=== PATIENT | male | born 1955 | race African-American/Black ===

== ENCOUNTER 2018-02-09 12:07 | Inpatient (IN) | payer MEDICARE ==
[~2018-02-09] VITALS: Ht 170.2 cm; Wt 90.0 kg
[2018-02-09 13:40] LABS: BASOPHILS % (AUTO) 0.9 % (0.0-2.0); EOSINOPHILS % (AUTO) 1.6 % (1.0-6.0); HEMATOCRIT 48.4 % (41-53); HEMOGLOBIN 16.2 g/dL (13.5-17.5); LYMPHOCYTES # (AUTO) 1.3 K/uL (1.0-4.8); LYMPHOCYTES % (AUTO) 18.6 % (22.0-44.0); MEAN CORPUSCULAR HEMOGLOBIN 30.1 pg (26.0-34.0); MEAN CORPUSCULAR HGB CONC 33.5 G/dL (31.0-37.0); MEAN CORPUSCULAR VOLUME 90 fL (80-100); MONOCYTES # (AUTO) 0.5 K/uL (0.1-1.0); MONOCYTES % (AUTO) 7.8 % (2.0-9.0); NEUTROPHILS % (AUTO) 71.1 % (40.0-70.0); PLATELET COUNT (AUTO) 179 K/uL (150-450); RED BLOOD CELL COUNT(AUTO) 5.37 MIL/uL (4.50-5.90); RED CELL DISTRIBUTION WIDTH 16.9 % (11.5-14.5)
[2018-02-09 13:55] LABS: ANION GAP 11 mmol/L (8-16); CALCIUM, TOTAL 9.5 mg/dL (8.8-10.5); CARBON DIOXIDE 23 mmol/L (22-29); CHLORIDE 105 mmol/L (98-107); CREATININE 1.37 mg/dL (0.60-1.30); GLOMERULAR FILTR. RATE CALC > 60 mL/min (>60); GLUCOSE,RANDOM 90 mg/dL (70-110); SODIUM SERUM 139 mmol/L (136-145); UREA NITROGEN, BLOOD 21 mg/dL (7-18)
[2018-02-09 14:00] LABS: ALANINE AMINOTRANSFERASE 19 U/L (12-78); ALBUMIN 2.8 g/dL (3.4-5.0); ALKALINE PHOSPHATASE 115 U/L (46-116); ASPARTATE AMINOTRANSFERASE 17 U/L (15-37); BILIRUBIN,TOTAL 0.4 mg/dL (0.1-1.0); TOTAL PROTEIN, SERUM 6.8 g/dL (6.4-8.2)
[2018-02-09] MEDS ORDERED: HALOPERIDOL 5 MG TABLET PO PRN (15:30)
[2018-02-09] MEDS ORDERED: ZOLPIDEM TARTRATE 10 MG TABLET PO PRN (15:30)
[2018-02-09] MEDS ORDERED: LORazepam 2 MG TABLET PO PRN (15:30)
[2018-02-09 18:10] VITALS: BP 146/85
[2018-02-09] MEDS ORDERED: PNEUMOCOCCAL VACCINE POLYVALENT 0.5 ML VIAL [PPSV23] IM ONE ×2 (18:15→21:30)
[2018-02-09] MEDS ORDERED: IBUPROFEN 400 MG TABLET PO PRN (18:30)
[2018-02-09] MEDS ORDERED: NICOTINE 14 MG/24 HOUR PATCH TD PRN (18:30)
[2018-02-09] MEDS ORDERED: ONDANSETRON HCL 4 MG TABLET PO PRN (18:30)
[2018-02-09] MEDS ORDERED: CloNIDine HCL 0.1 MG TABLET PO PRN (18:30)
[2018-02-09] MEDS ORDERED: ALBUTEROL SULFATE HFA 90 MCG/PUFF 8 GM INHALER IH PRN (18:30)
[2018-02-09] MEDS ORDERED: PETROLATUM,WHITE 71 GM JELLY TP PRN (18:30)
[2018-02-09] MEDS ORDERED: LOPERAMIDE HCL 2 MG CAPSULE PO PRN (18:30)
[2018-02-09] MEDS ORDERED: ACETAMINOPHEN 325 MG TABLET PO PRN (18:30)
[2018-02-09] MEDS ORDERED: MAG HYDROX/AL HYDROX/SIMETH ES 30 ML SUSPENSION UDCUP PO PRN (18:30)
[2018-02-09] MEDS ORDERED: GuaiFENesin/D-METHORPHAN [SUGAR-FREE] 200-20MG/10 ML SYRUP UDCUP PO PRN (18:30)
[2018-02-09] MEDS ORDERED: MAGNESIUM HYDROXIDE SUSPENSION 30 ML UDCUP PO PRN (18:30)
[2018-02-09] MEDS ORDERED: DOCUSATE SODIUM 100 MG CAPSULE PO PRN (18:30)
[2018-02-09] MEDS: AmLODIPine BESYLATE 5 MG TABLET PO SCH (20:45)
[2018-02-09] MEDS: NICOTINE 21 MG/24 HOUR PATCH TD SCH (20:46)
[2018-02-10 00:46] VITALS: BP 128/75
[2018-02-10 07:20] LABS: BASOPHILS % (AUTO) 0.8 % (0.0-2.0); EOSINOPHILS % (AUTO) 2.1 % (1.0-6.0); HEMATOCRIT 44.3 % (41-53); HEMOGLOBIN 14.9 g/dL (13.5-17.5); LYMPHOCYTES # (AUTO) 1.9 K/uL (1.0-4.8); LYMPHOCYTES % (AUTO) 26.3 % (22.0-44.0); MEAN CORPUSCULAR HEMOGLOBIN 30.2 pg (26.0-34.0); MEAN CORPUSCULAR HGB CONC 33.5 G/dL (31.0-37.0); MEAN CORPUSCULAR VOLUME 90 fL (80-100); MONOCYTES # (AUTO) 0.8 K/uL (0.1-1.0); MONOCYTES % (AUTO) 10.5 % (2.0-9.0); NEUTROPHILS # (AUTO) 4.5 K/uL (1.8-7.7); NEUTROPHILS % (AUTO) 60.3 % (40.0-70.0); PLATELET COUNT (AUTO) 174 K/uL (150-450); RED BLOOD CELL COUNT(AUTO) 4.92 MIL/uL (4.50-5.90); RED CELL DISTRIBUTION WIDTH 16.9 % (11.5-14.5)
[2018-02-10 07:36] LABS: HEMOGLOBIN A1C 5.5 % (4.5-6.2)
[2018-02-10 07:55] LABS: ALBUMIN 2.8 g/dL (3.4-5.0); BILIRUBIN,TOTAL 0.2 mg/dL (0.1-1.0); CALCIUM, TOTAL 8.9 mg/dL (8.8-10.5); CREATININE 1.51 mg/dL (0.60-1.30); POTASSIUM 4.2 mmol/L (3.5-5.1); THYROID STIMULATING HORMONE 0.69 uIU/mL (0.36-3.74); TOTAL PROTEIN, SERUM 5.9 g/dL (6.4-8.2)
[2018-02-10 08:05] VITALS: BP 126/95
[2018-02-10] MEDS: OLANZapine 5 MG TABLET PO SCH ×2 (12:26→16:25)
[2018-02-10] MEDS: AmLODIPine BESYLATE 5 MG TABLET PO SCH (12:28)
[2018-02-10] MEDS: NICOTINE 21 MG/24 HOUR PATCH TD SCH (14:04)
[2018-02-10 17:00] VITALS: BP 115/57
[2018-02-11 03:15] VITALS: BP 135/92
[2018-02-11 08:05] VITALS: BP 153/86
[2018-02-11] MEDS: OLANZapine 5 MG TABLET PO SCH ×2 (08:34→16:18)
[2018-02-11] MEDS: AmLODIPine BESYLATE 5 MG TABLET PO SCH (08:34)
[2018-02-11] MEDS: NICOTINE 21 MG/24 HOUR PATCH TD SCH (08:38)
[2018-02-11 21:48] VITALS: BP 134/69
[2018-02-12 07:00] VITALS: BP 157/96
[2018-02-12] MEDS: AmLODIPine BESYLATE 5 MG TABLET PO SCH (08:17)
[2018-02-12] MEDS: OLANZapine 5 MG TABLET PO SCH ×2 (08:17→16:18)
[2018-02-12] MEDS: NICOTINE 21 MG/24 HOUR PATCH TD SCH (08:17)
[2018-02-12 10:06] VITALS: BP 149/85
[2018-02-12 16:00] VITALS: BP 145/82
[2018-02-13] MEDS: OLANZapine 5 MG TABLET PO SCH ×2 (08:40→16:37)
[2018-02-13] MEDS: AmLODIPine BESYLATE 5 MG TABLET PO SCH (08:40)
[2018-02-13] MEDS: NICOTINE 21 MG/24 HOUR PATCH TD SCH (08:45)
[2018-02-13 10:09] VITALS: BP 143/83
[2018-02-13 17:09] VITALS: BP 128/78
[2018-02-14 02:10] VITALS: BP 125/84
[2018-02-14 08:05] VITALS: BP 150/87
[2018-02-14] MEDS: OLANZapine 5 MG TABLET PO SCH ×2 (08:40→16:11)
[2018-02-14] MEDS: AmLODIPine BESYLATE 5 MG TABLET PO SCH (08:40)
[2018-02-14] MEDS: NICOTINE 21 MG/24 HOUR PATCH TD SCH (08:45)
[2018-02-14 16:30] VITALS: BP 137/81
[2018-02-15 06:36] VITALS: BP 140/93
[2018-02-15] MEDS: AmLODIPine BESYLATE 5 MG TABLET PO SCH (08:02)
[2018-02-15] MEDS: OLANZapine 5 MG TABLET PO SCH ×2 (08:02→17:14)
[2018-02-15 08:08] LABS: CALCIUM, TOTAL 9.7 mg/dL (8.8-10.5); CREATININE 1.49 mg/dL (0.60-1.30); POTASSIUM 4.5 mmol/L (3.5-5.1)
[2018-02-15] MEDS: NICOTINE 21 MG/24 HOUR PATCH TD SCH (08:12)
[2018-02-15 09:20] VITALS: BP 154/100
[2018-02-15 16:30] VITALS: BP 128/86
[2018-02-16 00:10] VITALS: BP 133/73
[2018-02-16] MEDS: AmLODIPine BESYLATE 5 MG TABLET PO SCH (08:37)
[2018-02-16] MEDS: OLANZapine 5 MG TABLET PO SCH (08:37)
[2018-02-16] MEDS: NICOTINE 21 MG/24 HOUR PATCH TD SCH (08:43)
[2018-02-16 09:37] VITALS: BP 148/92
[2018-02-16] MEDS ORDERED: OLAN5TAB2 PO (10:30)
[2018-02-16] MEDS ORDERED: AMLO-511 PO (10:31)
== END 2018-02-16 13:30 | disposition home or self-care (01) | DRG 885 ==
LOC: EMS 12:08 → 3EX 15:59
PROVIDERS: ADMIT Psychiatry & Neurology Child & Adolescent Psychiatry; ATTEND Psychiatry & Neurology Child & Adolescent Psychiatry
DX: F20.0 Paranoid schizophrenia (principal); N18.9 Chronic kidney disease, unspecified; E11.22 Type 2 diabetes mellitus with diabetic chronic kidney disease; F17.210 Nicotine dependence, cigarettes, uncomplicated; I12.9 Hypertensive chronic kidney disease with stage 1 through stage 4 chronic kidney disease, or unspecified chronic kidney disease; F41.9 Anxiety disorder, unspecified; M79.672 Pain in left foot; Z87.01 Personal history of pneumonia (recurrent); Z83.3 Family history of diabetes mellitus; Z82.49 Family history of ischemic heart disease and other diseases of the circulatory system; Z80.9 Family history of malignant neoplasm, unspecified; Z71.6 Tobacco abuse counseling
CPT/HCPCS: 83036; 84443; 90686; 90732; G0378; G0480